=== PATIENT | female | born 1990 | race African-American/Black ===

== ENCOUNTER 2018-04-18 20:38 | Emergency (ER) | payer OTHER ==
[~2018-04-18] VITALS: Ht 167.6 cm; Wt 72.6 kg
[2018-04-19] MEDS ORDERED: KETO10TA2 PO (04:54)
[2018-04-19] MEDS ORDERED: BACTRIM DS TAB1 EACH PO (04:54)
== END 2018-04-19 05:49 | disposition home or self-care (01) ==
LOC: ER 20:38
DX: N39.0 Urinary tract infection, site not specified (principal); R10.2 Pelvic and perineal pain

== ENCOUNTER 2021-08-15 22:08 | Emergency (ER) | payer OTHER ==
[~2021-08-15] VITALS: Ht 162.6 cm; Wt 77.1 kg
[~2021-08-15 22:08] MED LIST: BACTRIM DS TAB1 EACH PO; KETO10TA2 PO
[2021-08-16] MEDS ORDERED: KETO10TA2 PO (06:19)
== END 2021-08-16 06:25 ==
LOC: ER 22:08
DX: N83.292 Other ovarian cyst, left side (principal)

== ENCOUNTER 2022-04-11 22:55 | Emergency (ER) | payer OTHER ==
[~2022-04-11] VITALS: Ht 162.6 cm; Wt 79.4 kg
[2022-04-12] MEDS ORDERED: KETO10TA2 PO (05:03)
== END 2022-04-12 05:17 ==
LOC: ER 22:55
DX: N83.201 Unspecified ovarian cyst, right side (principal); D25.9 Leiomyoma of uterus, unspecified

== ENCOUNTER 2025-05-10 16:45 | Outpatient (CLI) | payer OTHER | END 2025-05-10 16:50 | disposition home or self-care (01) | LOC: PRENATAL 16:45 | PROVIDERS: ATTEND Obstetrics & Gynecology Maternal & Fetal Medicine | DX: Z76.1 Encounter for health supervision and care of foundling (principal) ==

== ENCOUNTER 2025-05-13 06:34 | Outpatient (CLI) | payer OTHER | END 2025-05-13 14:59 | disposition home or self-care (01) | LOC: LAB 06:34 | PROVIDERS: ATTEND Obstetrics & Gynecology Maternal & Fetal Medicine | DX: Z00.00 Encounter for general adult medical examination without abnormal findings (principal) ==

== ENCOUNTER 2025-05-13 12:14 | Outpatient (CLI) | payer OTHER | END 2025-05-13 12:18 | disposition home or self-care (01) | LOC: PRENATAL 12:14 | PROVIDERS: ATTEND Obstetrics & Gynecology Maternal & Fetal Medicine | DX: O28.5 Abnormal chromosomal and genetic finding on antenatal screening of mother (principal); O09.519 Supervision of elderly primigravida, unspecified trimester; Z36.82 Encounter for antenatal screening for nuchal translucency; Z3A.12 12 weeks gestation of pregnancy ==

== ENCOUNTER 2025-05-29 13:04 | Emergency (ER) | payer OTHER ==
[~2025-05-29] VITALS: Ht 162.6 cm; Wt 77.1 kg
[2025-05-29] MEDS ORDERED: PRENATE DHA SO1 EAC1 (14:00)
[2025-05-29] MEDS ORDERED: METHYLPREDNISOLONE SOD SUCC 40 MG VIAL ONE (14:24)
[2025-05-29] MEDS ORDERED: FAMOTIDINE/PF 20 MG/2 ML VIAL ONE (14:25)
[2025-05-29] MEDS ORDERED: CETIRIZINE HCL 5MG/5ML BLIST.PACK PO ONE (14:25)
[2025-05-29] MEDS ORDERED: 0.9 % SODIUM CHLORIDE 1,000 ML IV ONE (14:30)
[2025-05-29] MEDS ORDERED: FAMOtidine 10 MG/ML (4ML VIAL) IV ONE (14:30)
[2025-05-29] MEDS ORDERED: CETIRIZINE HCL 5 MG/5 ML ML PO ONE (14:30)
[2025-05-29] MEDS ORDERED: METHYLPREDNISOLONE SOD SUCC 40 MG VIAL IV ONE (14:30)
[2025-05-29] MEDS ORDERED: LEVALBUTEROL HCL 1.25 MG/3 ML SOLUTION IH ONE ×2 (14:30→14:39)
[2025-05-29 15:14] LABS: BASO % 0.2 % (0.1-1.2); EOS # 0.05 (0.04-0.54); EOS % 0.4 % (0.7-7.0); LYMPH # 2.36 (1.18-3.74); LYMPH % 18.1 % (19.3-53.1); MEAN PLATELET VOLUME 9.90 fl (9.4-12.4); MONO # 0.85 (0.24-0.82); MONO % 6.5 % (4.7-12.5); NEUT # 9.74 (1.56-6.13); NEUT % 74.4 % (34.0-71.1); RED CELL DISTRIBUTION WIDTH 14.5 % (11.6-14.4)
[2025-05-29 15:39] LABS: COVID-19 AG NEGATIVE (NEGATIVE)
[2025-05-29] MEDS ORDERED: PEPCID AC20 MG PO (16:10)
[2025-05-29] MEDS ORDERED: ZYRTEC10 MG PO (16:10)
[2025-05-29] MEDS ORDERED: LEVALBUTER0.63 MG/3 IH (16:10)
[2025-05-29] MEDS ORDERED: CEFUROXIME500 MG PO (16:10)
[2025-05-29 16:17] LABS: ALT/SGPT 17.0 U/L (12-78); AST/SGOT 12.0 U/L (15-37); BILIRUBIN TOTAL 0.27 mg/dL (0.3-1.2); BUN CREA RATIO 19.0 (7.0-25.0); CREATININE SERUM 0.43 mg/dL (0.55-1.02); GFR 167.1; GLOBULINA 4.0 G/DL (2.4-3.5); GLUCOSE FASTING 79.0 mg/dL (65-100); OSMOLALITY SERUM 277.0 MOSM/KG (275-295)
[2025-05-29 16:29] LABS: HCG QUANTITATIVE 35337.0 mUI/mL (1-3)
[2025-05-29 17:15] LABS: URINE APPEARANCE Clear; URINE BILIRRUBIN Negative (NEGATIVE); URINE BLOOD Negative; URINE COLOR Yellow; URINE GLUCOSE Negative (NEGATIVE); URINE LEUKOCYTE Negative; URINE NITRATE Negative; URINE PROTEIN Negative (NEGATIVE); URINE UROBILINOGEN 0.2 E.U./dl
[2025-05-29 17:21] LABS: URINE BACTERIA 418.8 uL (0.0-1933); URINE EPITHELIAL CELLS 8.2 uL (0.0-38.8); URINE RBC 10.1 uL (0.0-20.8); URINE WBC 10.1 uL (0.0-23.2)
[2025-05-29 17:42] LABS: URINE CAST 0.14 uL (0.0-1.40); URINE KETONE 40 (NEGATIVE)
== END 2025-05-29 16:24 | disposition home or self-care (01) ==
LOC: ER 13:04
PROVIDERS: General Practice
DX: Z33.1 Pregnant state, incidental (principal); Z3A.14 14 weeks gestation of pregnancy; R06.02 Shortness of breath; J00 Acute nasopharyngitis [common cold]; Z20.822 Contact with and (suspected) exposure to COVID-19